=== PATIENT | female | born 1940 | race Caucasian/White ===

== ENCOUNTER 2019-05-31 19:16 | Inpatient (IN) | payer OTHER, MEDICAID ==
[~2019-05-31] VITALS: Ht 157.5 cm; Wt 68.0 kg
--- NOTE | 2019-05-31 19:18 | NUR ---
Note [place] in EDM - 06/01/19 at 0027 by SDEDBK Patient assisted with toileting needs. Non-blanchable erythema noted to bilateral buttocks. Daughter states that she was unaware that redness was present. Daughter also states that the patient routinely uses adult briefs due to incontinence.
[2019-05-31 19:19] VITALS: BP_SYST 160
--- NOTE | 2019-05-31 19:23 | NUR ---
Patient to ER bed 08 to gown for evaluation. Side rails up.
--- NOTE | 2019-05-31 19:28 | NUR ---
Patient assisted with toileting needs. Non-blanchable erythema noted to bilateral buttocks. Daughter states that she was unaware that redness was present. Daughter also states that the patient routinely uses adult briefs due to incontinence.
--- NOTE | 2019-05-31 19:30 | NUR ---
Patient brought to ER via ambulance BLS from home for complaint of generalized weakness noted today. Daughter reports that the patient usually complains of left leg discomfort, but noted increased weakness today. Patient has hx of dementia, AOx1. No acute distress noted at this time. Daughter and at bedside.
--- NOTE | 2019-05-31 20:20 | NUR ---
ER Dr. Campa at bedside examining patient.
[2019-05-31] MEDS ORDERED: NACL 0.9% 1,000 ML IV ONE (20:30)
--- NOTE | 2019-05-31 20:49 | NUR ---
# 22 gauge angiocath placed to LFA. Use of asceptic technique. Opsite placed over site. Blood return noted. Blood for lab drawn from site. Flushed with 10 cc of normal saline. No evidence of infiltration noted. Patient tolerated well.
[2019-05-31 20:55] LABS: BASOPHILS % (AUTO) 0.2 % (0.0-2.0); HEMATOCRIT 44.6 % (36-48); HEMOGLOBIN 14.8 g/dL (12.0-16.0); LYMPHOCYTES # (AUTO) 0.8 K/uL (1.0-5.5); LYMPHOCYTES % (AUTO) 5.5 % (20.5-51.5); MEAN CORPUSCULAR HEMOGLOBIN 32 pg (27-31); MEAN CORPUSCULAR HGB CONC 33 % (32-36); MEAN CORPUSCULAR VOLUME 95 fL (79.0-98.0); MONOCYTES # (AUTO) 0.7 K/uL (0.0-1.0); MONOCYTES % (AUTO) 4.8 % (1.7-9.3); NEUTROPHILS # (AUTO) 13.4 K/uL (1.8-7.7); NEUTROPHILS % (AUTO) 89.5 % (40.0-70.0); PLATELET COUNT (AUTO) 342 K/uL (130-430); RED CELL DISTRIBUTION WIDTH 13.2 % (9.0-15.0)
[2019-05-31 21:06] LABS: ANION GAP 7 (5-15); CALCIUM 9.3 mg/dL (8.4-11.0); CHLORIDE 105 mmol/L (98-107); CREATININE 0.64 mg/dL (0.55-1.30); GLUCOSE 132 mg/dL (70-99); SODIUM SERUM 135 mmol/L (136-145); UREA NITROGEN, BLOOD 11 mg/dL (8-21)
[2019-05-31 21:12] LABS: ALANINE AMINOTRANSFERASE 15 U/L (12-78); ALBUMIN 3.1 g/dL (3.4-4.8); ASPARTATE AMINOTRANSFERASE 12 U/L (10-37); TOTAL BILIRUBIN 0.6 mg/dL (0.0-1.0)
[2019-05-31] MEDS ORDERED: LORazepam 2 MG/ML VIAL (FOR ER USE) IVP ONE ×2 (21:30→22:00)
--- NOTE | 2019-05-31 21:39 | NUR ---
Medication reconciliation completed with information provided by daughter. Any prior medication reconciliation on file was reviewed and corrected.
[2019-05-31] MEDS ORDERED: MELA3TAB PO (21:41)
[2019-05-31] MEDS ORDERED: MEMA5TAB15 PO (21:41)
--- NOTE | 2019-05-31 22:28 | NUR ---
Patient is unable to participate in end of life decisions making at this time. End of life care decisions discussed with patient's daughter by Dr. Campa. Opportunity for questions and concerns addressed. Patient's code status is DNR, paperwork completed and placed in chart.
--- NOTE | 2019-05-31 22:32 | NUR ---
Patient unable to toilet self. # 16 FR Corcoran catheter with use of sterile technique. Immediate return of 150 cc sam urine noted. Bedside drainage bag placed below level of bladder. Urine sample collected and sent to lab. Pt tolerated procedure well.
--- NOTE | 2019-05-31 23:15 | NUR ---
Temporal temp 101.4MD Campa made aware.
[2019-05-31 23:24] LABS: BILIRUBIN,URINE NEGATIVE (NEGATIVE); CLARITY/URINE CLOUDY (CLEAR); COLOR,URINE AMBER (YELLOW); GLUCOSE,URINE NEGATIVE (NEGATIVE); KETONES,URINE 1+ (NEGATIVE); LEUKOCYTE ESTERASE ,URINE 1+ (NEGATIVE); NITRITE, URINE POSITIVE (NEGATIVE); PROTEIN URINE NEGATIVE (NEGATIVE)
[2019-05-31 23:32] LABS: BLOOD, URINE TRACE (NEGATIVE)
[2019-05-31] MEDS ORDERED: ACETAMINOPHEN 500 MG TABLET PO ONE (23:45)
[2019-05-31] MEDS ORDERED: ACETAMINOPHEN 650 MG SUPP.RECT RC ONE (23:53)
[2019-06-01] MEDS ORDERED: ACETAMINOPHEN 650 MG SUPP.RECT RC ONE
--- NOTE | 2019-06-01 00:05 | NUR ---
Rectal suppository given at this time and well tolerated.
[2019-06-01 00:10] LABS: BACTERIA,URINE MANY /HPF (None Seen); RBC,URINE 0-3 /HPF (0-3)
[2019-06-01 00:11] LABS: MUCUS,URINE 3+ /LPF (None Seen)
[2019-06-01] MEDS ORDERED: cefTRIAXone 1 GM IVPB PREMIX 50 ML IV ONE (00:15)
--- NOTE | 2019-06-01 01:15 | NUR ---
Temporal temp 99.8 at this time.
[2019-06-01] MEDS ORDERED: NACL 0.9% 1,000 ML IV ONE (01:30)
--- NOTE | 2019-06-01 01:41 | NUR ---
Patient will be admitted to care of DR. LOVE. Admitted to MED SURG unit. Will go to room 114A. Summary report printed. Report will be given at bedside.
--- NOTE | 2019-06-01 02:20 | NUR ---
ADMIT NOTE Received pt from ER to the floor with a diagnosis of failure to thrive and uti. Admission process initiated. patient oriented to pain management, safety and call light-teach back done. pt's family at bedside.
[2019-06-01 02:25] VITALS: BP_SYST 180
--- NOTE | 2019-06-01 03:00 | NUR ---
Pt is confused and disoriented. Family members are at the bedside. IV site in Rh is without any signs of infiltration and IVF is infusing well. Darcy care given by RN and REAL ESTATE LISTING CONSULTANT.
[2019-06-01] MEDS: D5NS 1,000 ML IV SCH ×3 (03:23→17:52)
--- NOTE | 2019-06-01 05:00 | NUR ---
Pt is sleeping without any respiratory distress noted. IVF is infusing well in RH. Fall and safety precautions are in place.
--- NOTE | 2019-06-01 06:54 | NUR ---
Pt continues to sleep without any respiratory distress noted. IVF is infusing well in RH. Call light is with pt and bed alarm is on. Will endorse to day shift nurse.
--- NOTE | 2019-06-01 07:12 | NUR ---
Opening Note received bedside SBAR report from shift supervisor rn RN, patient resting in bed, respirations even and unlabored, no acute distress noted, patients at bedside, educated patient on use of call light and asked to call for assistance, patient verbalized understanding, call light in reach, bed in low and locked position, bed alarm on.
[2019-06-01 08:00] VITALS: BP_SYST 144
--- NOTE | 2019-06-01 09:37 | NUR ---
Nutrition Update Odin Scale 12 noted. Pt admitted for FTT, UTI. Diet: NPO BMI: 27.4 kg/m2 RD to follow per nutrition care standards.
--- NOTE | 2019-06-01 09:57 | NUR ---
RN Rounds patient resting in bed, respirations even and unlabored on room air, no acute distress noted.
--- NOTE | 2019-06-01 10:17 | NUR ---
Education educated patient and patients on use and purpose of SCDs for DVT prophylaxis, understanding verbalized.
--- NOTE | 2019-06-01 10:20 | NUR ---
[facility] notified Joselin [facility], , of hospice eval order. She plans to phone [facility]. Addendum: 06/01/19 at 1529 by Tracie Kerr [facility] Met with Cecil from [facility] who was here to meet with family and sign patient on to hospice services. Patient's family said they were familiar with hospice and [facility]. Provided my card. Will remain available upon request. Addendum: 06/01/19 at 1618 by Tracie Kerr [facility] Nithya notified [facility] that patient is signed on to [facility], . They will be ready for discharge tomorrow if ordered. Provided patient information. Dr Mar was notified.
[2019-06-01] MEDS: PIPERACILLIN/TAZO 3.375/DEX-IS 50 ML IV SCH ×4 (10:23→23:33)
--- NOTE | 2019-06-01 10:50 | NUR ---
to CT patient taken to CT via gurney, no acute distress noted.
--- NOTE | 2019-06-01 11:09 | NUR ---
back from CT patient brought back to room from CT via gurney, patient resting in bed, no acute distress noted, patient at bedside.
[2019-06-01 11:25] VITALS: BP_SYST 151
--- NOTE | 2019-06-01 13:15 | NUR ---
Repositioned assisted patient to reposition, patient tolerated well, no acute distress noted, patients at bedside.
--- NOTE | 2019-06-01 15:05 | NUR ---
IV access patient removed IV catheter, catheter intact, no bleeding, educated patient on purpose and procedure for IV catheter placement, new IV catheter placed by storage battery charger to right forearm, 22G, flushes easily with blood return.
[2019-06-01] MEDS ORDERED: HALOPERIDOL LACTATE 5 MG/ML VIAL IM ONE (15:30)
--- NOTE | 2019-06-01 15:33 | NUR ---
Spoke with Physician spoke with Dr. Mar, informed him that patient is agitated, patient removed IV, patient is screaming, patient yelling "Im falling", new medication orders received, verified with read back.
--- NOTE | 2019-06-01 16:33 | NUR ---
RN Rounds patient resting in bed, respirations even and unlabored on room air, patient calm, no acute distress noted, patients family at bedside.
[2019-06-01 16:49] VITALS: BP_SYST 160
--- NOTE | 2019-06-01 18:46 | NUR ---
RN Rounds patient resting in bed, respirations even and unlabored on room air, no acute distress noted.
--- NOTE | 2019-06-01 19:20 | NUR ---
Closing Note bedside SBAR report given to receiving RN, patient resting in bed, respirations even and unlabored on room air, no acute distress noted, room close to nurses station, educated patient on use of call light and asked to call for assistance, call light in reach, bed in low and locked position, bed alarm on, care endorsed to slot shift manager RN.
--- NOTE | 2019-06-01 19:20 | NUR ---
Bedside report was received from day shift nurse. Pt was received lying in bed sleeping, but easily arousable. Pt is confused and disoriented. IVF of D5NS is infusing well in RFA at 75ml/hr without any signs of infiltration at the IV site. Corcoran cath to gravity drainage noted with yellowish urine. Fall and safety precautions are in place. Call light is with pt and bed alarm is on.
[2019-06-01 20:00] VITALS: BP_SYST 157
--- NOTE | 2019-06-01 21:00 | NUR ---
Pt wakes up occasionally and garbles some words. Pt also claps her hands and falls back asleep. No respiratory distress noted. IVF is infusing well in RFA. Fall and safety precautions are in place.
--- NOTE | 2019-06-01 23:00 | NUR ---
Pt is sleeping and easily arousable. Pt still garbles some words and claps her hands with her eyes closed. No respiratory distress noted. IVF is infusing well in RFA. Fall and safety precautions are in place.
--- NOTE | 2019-06-02 01:00 | NUR ---
Pt is sleeping without any distress noted. IVF is infusing well in RFA. Fall and safety precautions are in place.
[2019-06-02 02:07] VITALS: BP_SYST 149
--- NOTE | 2019-06-02 03:00 | NUR ---
Pt is sleeping without any distress noted. IVF is infusing well in RFA. Fall and safety precautions are in place.
--- NOTE | 2019-06-02 05:00 | NUR ---
Pt is sleeping comfortably in bed. No acute distress noted. IVF is infusing well in RFA. Fall and safety precautions are in place.
[2019-06-02] MEDS: PIPERACILLIN/TAZO 3.375/DEX-IS 50 ML IV SCH ×2 (05:45→12:24)
[2019-06-02 05:49] LABS: BASOPHILS % (AUTO) 0.1 % (0.0-2.0); HEMATOCRIT 40.2 % (36-48); HEMOGLOBIN 13.5 g/dL (12.0-16.0); LYMPHOCYTES # (AUTO) 1.2 K/uL (1.0-5.5); LYMPHOCYTES % (AUTO) 8.7 % (20.5-51.5); MEAN CORPUSCULAR HEMOGLOBIN 32 pg (27-31); MEAN CORPUSCULAR HGB CONC 34 % (32-36); MEAN CORPUSCULAR VOLUME 94 fL (79.0-98.0); MONOCYTES # (AUTO) 1.1 K/uL (0.0-1.0); MONOCYTES % (AUTO) 8.1 % (1.7-9.3); NEUTROPHILS # (AUTO) 11.3 K/uL (1.8-7.7); NEUTROPHILS % (AUTO) 83.1 % (40.0-70.0); PLATELET COUNT (AUTO) 295 K/uL (130-430); RED BLOOD CELL COUNT(AUTO) 4.28 MIL/uL (4.2-6.2); WHITE BLOOD COUNT (AUTO) 13.6 K/uL (4.8-10.8)
--- NOTE | 2019-06-02 06:47 | NUR ---
Pt is sleeping without any respiratory distress noted. IVF is infusing well in RFA. Call light is with pt and bed alarm is on. Will endorse to day shift nurse.
[2019-06-02 07:00] LABS: ALANINE AMINOTRANSFERASE 15 U/L (12-78); ALBUMIN 2.3 g/dL (3.4-4.8); ANION GAP 9 (5-15); ASPARTATE AMINOTRANSFERASE 17 U/L (10-37); CALCIUM 8.5 mg/dL (8.4-11.0); CHLORIDE 104 mmol/L (98-107); CREATININE 0.57 mg/dL (0.55-1.30); GLUCOSE 140 mg/dL (70-99); SODIUM SERUM 135 mmol/L (136-145); TOTAL BILIRUBIN 0.6 mg/dL (0.0-1.0); UREA NITROGEN, BLOOD 5 mg/dL (8-21)
[2019-06-02 07:19] LABS: POTASSIUM 2.7 mmol/L (3.5-5.1)
--- NOTE | 2019-06-02 07:19 | NUR ---
Opening Note received bedside SBAR report from shift coordinator RN, patient resting in bed, respirations even and unlabored on room air, no acute distress noted, room close to nurses station, educated patient on use of call light and asked to call for assistance, call light in reach, bed in low and locked position, bed alarm on.
--- NOTE | 2019-06-02 07:35 | NUR ---
MD MARLEY DIEGO CALLED AT SPOKE WITH DR.JANDIAL LAMB RAJNISH LEADLIGHTER.
--- NOTE | 2019-06-02 07:42 | NUR ---
Spoke with Physician spoke with Dr. Mar, informed him of critical lab potassium 2.7, new medication orders received, verified with telephone read back. Addendum: 06/02/19 at 0823 by Soco Serrano RN Dr. Hough order is for 40mEq total, per Pharmacist Bach must be given to two doses for total of 40mEq due to patient having a peripheral line.
[2019-06-02 08:00] VITALS: BP_SYST 140
[2019-06-02] MEDS: KCL 20 mEq in 100 mL (PREMIX) 100 ML IV SCH ×2 (08:26→10:09)
[2019-06-02] MEDS: D5NS 1,000 ML IV SCH (08:32)
[2019-06-02] MEDS ORDERED: HALOPERIDOL LACTATE 5 MG/ML VIAL IM ONE ×2 (09:30→15:45)
--- NOTE | 2019-06-02 09:39 | NUR ---
Agitation patient grabbing on side rails, moving around, clenching fists, Dr. Mar made aware, new medication orders received, verified with read back.
--- NOTE | 2019-06-02 11:19 | NUR ---
SS Note: ROLL BUCKER phoned Joselin from HCP @ [phone] regarding DCP Order of [facility] with HOSPICE. Per Joselin, pt is discharging with [facility].
--- NOTE | 2019-06-02 11:40 | NUR ---
Oral Care oral care provided, patient tolerated well, patient resting in bed.
[2019-06-02 12:00] VITALS: BP_SYST 149
--- NOTE | 2019-06-02 13:55 | NUR ---
RN Rounds patient resting in bed, respirations even and unlabored on room air, no acute distress noted, patient calm.
[2019-06-02 14:04] VITALS: BP_SYST 149
--- NOTE | 2019-06-02 15:11 | NUR ---
Bed bath bed bath completed, patient tolerated well, no acute distress noted, new linens provided, patient resting in bed.
--- NOTE | 2019-06-02 15:37 | NUR ---
Agitated patient crying and shouting out, patient stating that she sees other people in the room, patient pulling at gown and blankets, informed Dr. Mar, new medication orders received, verified with read back.
[2019-06-02 16:35] VITALS: BP_SYST 142
--- NOTE | 2019-06-02 16:46 | NUR ---
RN Rounds patient resting in bed, calm, respirations even and unlabored on room air, no acute distress noted.
--- NOTE | 2019-06-02 17:31 | NUR ---
Called [facility], roll picker was scheduled at 1700, they stated that they should be arriving in the next 30 minutes.
--- NOTE | 2019-06-02 17:38 | NUR ---
Spoke with patients daughter Spoke with patients daughter Tia, informed her that ambulance is running late for cotton picker and that RN will call her when they arrive for cotton picker, Tia verbalized understanding.
--- NOTE | 2019-06-02 18:22 | NUR ---
Discharge patient provided with discharge packet and instructions for discharge home with hospice, IV catheter removed, catheter intact, no bleeding, hospital ID band removed, plain ID band in place, no acute distress noted, patient transferred via gurney by BLS ambulance. Addendum: 06/02/19 at 1908 by Soco Serrano RN [facility] binder sent with patient.
--- NOTE | 2019-06-02 18:32 | NUR ---
Spoke with Patient daughter spoke with patients daughter Tia, informed her that patient left a few minutes ago to be transferred home with hospice, Tia verbalized understanding.
== END 2019-06-02 18:22 | disposition hospice, home (50) | DRG 872 ==
LOC: SED 19:16 → SMU 06-01 01:37
PROVIDERS: ADMIT Internal Medicine Hospice and Palliative Medicine; ATTEND Internal Medicine Hospice and Palliative Medicine
DX: A41.9 Sepsis, unspecified organism (principal); N39.0 Urinary tract infection, site not specified; I10 Essential (primary) hypertension; E86.0 Dehydration; G30.9 Alzheimer's disease, unspecified; F02.80 Dementia in other diseases classified elsewhere, unspecified severity, without behavioral disturbance, psychotic disturbance, mood disturbance, and anxiety; Z66 Do not resuscitate; Z79.899 Other long term (current) drug therapy; Z90.710 Acquired absence of both cervix and uterus
CPT/HCPCS: 36415; 70450-TC; 71045; 80053; 81000-TC; 82607; 83605; 84443-TC; 85025; 87040-TC; 87086; 87186-TC; 96361; 96365; 96375; 99285; J0696; J1630; J2060; J2543; J3480; J7042